=== PATIENT | female | born 1995 | race Caucasian/White ===

== ENCOUNTER → 2020-10-28 12:03 | Outpatient (BNVA) | payer OTHER, SELFPAY | PROVIDERS: Visit Provider Physician Assistant Medical | DX: S33.9XXA Sprain of unspecified parts of lumbar spine and pelvis, initial encounter (principal); X50.0XXA Overexertion from strenuous movement or load, initial encounter | CPT/HCPCS: 99202 ==

== ENCOUNTER → 2020-11-04 10:45 | Outpatient (BNVA) | payer OTHER, SELFPAY | PROVIDERS: Visit Provider Physician Assistant Medical | DX: S33.9XXA Sprain of unspecified parts of lumbar spine and pelvis, initial encounter (principal); X50.0XXA Overexertion from strenuous movement or load, initial encounter | CPT/HCPCS: 72110; 99214 ==

== ENCOUNTER → 2020-11-12 10:05 | Outpatient (BNVA) | payer OTHER, SELFPAY | PROVIDERS: Visit Provider Physician Assistant Medical | DX: S33.9XXD Sprain of unspecified parts of lumbar spine and pelvis, subsequent encounter (principal); X58.XXXD Exposure to other specified factors, subsequent encounter | CPT/HCPCS: 99213 ==

== ENCOUNTER 2020-11-15 17:55 | Outpatient (REF) | payer OTHER, SELFPAY ==
--- NOTE | ~2020-11-15 | MR_ITS ---
EXAMINATION: MR LUMBAR SPINE WITHOUT CONTRAST CLINICAL INFORMATION: Lower back pain, throbbing. Lifting injury. COMPARISON: Lumbar spine radiographs dated 11/04/2020. TECHNIQUE: MRI of the lumbar spine was obtained using routine sequences without contrast. FINDINGS: VERTEBRAL BODIES AND PARASPINAL STRUCTURES: Normal vertebral body alignment. The lumbar lordosis is maintained. No acute fracture or subluxation. No loss of vertebral body or intervertebral disc height. Mild disc desiccation at L4-L5 and L5-S1. No abnormal marrow signal. No evidence of acute osseous injury. The visualized paraspinal soft tissues are unremarkable. CONUS MEDULLARIS AND CAUDA EQUINA: Normal, terminating at the level of L1. SPINAL LEVELS: T12-L1: No significant disc bulge. No central canal or neural foraminal stenosis. L1-L2: No significant disc bulge. No central canal or neural foraminal stenosis. L2-L3: No significant disc bulge. No central canal or neural foraminal stenosis. L3-L4: No significant disc bulge. No central canal or neural foraminal stenosis. L4-L5: No significant disc bulge. Mild bilateral facet arthropathy. No central canal or neural foraminal stenosis. L5-S1: No significant disc bulge. Mild bilateral facet arthropathy. Mild left-sided neural foraminal stenosis. MR/MR lumbar spine wo con IMPRESSION: 1. Mild bilateral facet arthropathy at L5-S1 with mild left-sided neural foraminal stenosis. 2. Mild bilateral facet arthropathy at L4-L5 without significant central canal or neural foraminal stenosis. 3. No additional disc bulge, central canal, or neural foraminal stenosis.
== END 2020-11-15 17:56 | disposition home or self-care (01) ==
LOC: HO.MRI 17:55
PROVIDERS: Visit Provider Internal Medicine
DX: S39.012A Strain of muscle, fascia and tendon of lower back, initial encounter (principal); X50.0XXA Overexertion from strenuous movement or load, initial encounter; Y93.F2 Activity, caregiving, lifting; Y92.129 Unspecified place in nursing home as the place of occurrence of the external cause; Y99.0 Civilian activity done for income or pay
CPT/HCPCS: 72148

== ENCOUNTER → 2020-11-19 10:05 | Outpatient (BNVA) | payer OTHER, SELFPAY | PROVIDERS: Visit Provider Physician Assistant Medical | DX: S33.9XXD Sprain of unspecified parts of lumbar spine and pelvis, subsequent encounter (principal); X58.XXXD Exposure to other specified factors, subsequent encounter | CPT/HCPCS: 99213 ==

== ENCOUNTER → 2020-11-25 12:51 | Outpatient (BNVA) | payer OTHER, SELFPAY | PROVIDERS: Visit Provider Physician Assistant Medical | DX: S33.9XXD Sprain of unspecified parts of lumbar spine and pelvis, subsequent encounter (principal); X58.XXXD Exposure to other specified factors, subsequent encounter | CPT/HCPCS: 99213 ==

== ENCOUNTER 2020-11-26 13:00 | Outpatient (RCR) | payer OTHER, SELFPAY ==
--- NOTE | 2020-11-10 12:38 | MHC.PT.EP ---
[facility] [place] Office [place] Office [place] Office [address] [place] [address] Dr Guerline Camacho [address] [phone] F: [phone] F: [phone] F: [phone] F: [phone] Physical Therapy Plan of Care Date of Evaluation: 11/10/20 Date of Surgery: NA Diagnosis: L/S STRAIN/SPASM Assessment: Pt IS 25 YO F REFERRED TO PT FROM WITH LUMBAR STRAIN/SPASM S/P INJURY AT WORK ON 10/28/20 [employer] AT [facility] WHILE HELPING A Pt TRANSF TO [facility]. Pt REPORTS PAIN 10-15 MIN AFTER INCIDENT. WENT TO THAT SAME DAY AND GIVEN MM RELAXER (DIDNT HELP) AND HAD XRAY (NEGATIVE PER Pt REPORT).. AT FU WAS GIVEN A STEROID WHICH HAS HELPED A LITTLE (FINISHED YESTERDAY). Pt PRESENTST TO PT WITH SIGNIFICANT ANTALGIC GT WITH SIGNIFICANTLY POOR POSTURE (FLEXED AT WAIST, CERV LAT FLEX, R HAND ON R LB), Pt WITH SIMILAR SIT POSTURE (DECREASED WB ON R WITH CERV FLEX AND LAT FLEX WITH EYES CLOSING AT TIMES DURING SESSION. Pt WAS EDUCATED PROFUSELY ON IMPORTANCE OF TRYING TO NORMALIZE POSTURE AND MOVEMENT. SHOULD BENEFIT FROM PT TO HELP NORMALIZE POSTURE, GT, MOBILITY AND HELP DECREASE PAIN AND IMPROVE FUNCTION FOR ADLS AND RTW Frequency and Duration: The patient will be seen 3X/WK X 2 WKS THEN 2X/WK X 2 WKS Short Term Goals: 1. IMPROVED GT PATTERN AND POSTURE 2. IMPROVED SIT POSTURE 3. I HEP WITH DC EX PLAN 4. Pt TP PERF 2-3 TASKS WITH PROPER BODY MECH Fpc Goals: 1. TRUNK ROM WNLS 2. DECREASED BACK PAIN AT LEAST 50% WITH ADLS 3. RTW 4. IMPROVED MOD OSWESTRY Treatment Plan: Modalities to reduce pain, spasms and effusion. Manual therapy to restore motion and function. Therapeutic exercise to improve strength and flexibility. Neuromuscular re-education for posture and balance. Therapeutic activities to return to functional activities of daily living. Electronically signed by: SHANITA LOYOLA PT Please sign and return to therapist. Thank you for your referral.
--- NOTE | 2021-02-11 09:33 | MHC.PT.DC ---
[facility] [place] Office [place] Office [place] Office [address] Camacho [address] [phone] F: [phone] F: [phone] F: [phone] F: [phone] Physical Therapy Discharge Report Diagnosis: L/S STRAIN/SPASM DOI 10/28/20 Date of Surgery: NA Date of Evaluation: 11/10/20 Date of Discharge: 02/11/21 Treatments to Date: 4 Cancellations to Date: No Shows to Date: Discharge Status: Patient Elected to Stop Recommend MD Follow-up Discharge Summary: AT LAST APPT PER NOTE BY VENKATESH CASH PT,DPT [Pt unable to extend, presents in slight flexion. Left and right sidebend able to achieve 6 inches from height of knee. 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 NO FURTHER APPTS MADE Electronically signed by: SHANITA LOYOLA PT Please sign and return to therapist. Thank you for your referral.
== END 2021-02-11 09:33 | disposition home or self-care (01) ==
LOC: HO.PTWFD 13:00
PROVIDERS: Visit Provider Physician Assistant Medical
DX: S39.012A Strain of muscle, fascia and tendon of lower back, initial encounter (principal); M62.830 Muscle spasm of back
CPT/HCPCS: 97014; 97035; 97110; 97140; 97162

== ENCOUNTER → 2020-12-03 11:39 | Outpatient (BNVA) | payer OTHER, SELFPAY | PROVIDERS: Visit Provider Physician Assistant Medical | DX: S33.9XXD Sprain of unspecified parts of lumbar spine and pelvis, subsequent encounter (principal); X58.XXXD Exposure to other specified factors, subsequent encounter; M47.817 Spondylosis without myelopathy or radiculopathy, lumbosacral region; M48.07 Spinal stenosis, lumbosacral region | CPT/HCPCS: 99213 ==

== ENCOUNTER 2020-12-30 09:00 | Outpatient (RCR) | payer OTHER, SELFPAY | END 2021-01-21 12:42 | disposition other institution (70) | LOC: HO.PTWFD 09:00 | PROVIDERS: Visit Provider Internal Medicine | DX: M54.5 Low back pain (principal); M79.18 Myalgia, other site | CPT/HCPCS: 97014; 97110; 97140; 97161; 97530; 97535 ==

== ENCOUNTER → 2022-10-11 10:34 | Outpatient (BNVA) | payer SELFPAY | PROVIDERS: Visit Provider Physician Assistant | DX: Z02.1 Encounter for pre-employment examination (principal) ==